=== PATIENT | female | born 1995 | race Caucasian/White ===

== ENCOUNTER 2017-01-26 10:47 | Emergency (ER) | payer MEDICAID ==
[~2017-01-26] VITALS: Wt 54.5 kg
[~2017-01-26 10:47] MED LIST: IBUP-1542 PO
[2017-01-26] MEDS ORDERED: IBUPROFEN 600 MG TAB PO STA (10:58)
[2017-01-26] MEDS ORDERED: DIAZEPAM 5 MG TAB PO ONE (11:00)
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
[2017-01-26] MEDS ORDERED: IBUP-1542 PO (13:16)
[2017-01-26] MEDS ORDERED: CYCL-319 PO (13:16)
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
== END 2017-01-26 13:25 | disposition home or self-care (01) ==
LOC: FTE 10:47
DX: S49.92XA Unspecified injury of left shoulder and upper arm, initial encounter (principal); S20.219A Contusion of unspecified front wall of thorax, initial encounter; V49.40XA Driver injured in collision with unspecified motor vehicles in traffic accident, initial encounter
CPT/HCPCS: 71010; 71120; 73030; Z7610

== ENCOUNTER 2018-04-04 00:47 | Emergency (ER) | END 2018-04-04 05:10 | disposition home or self-care (01) ==